=== PATIENT | male | born 1995 | race Caucasian/White ===

== ENCOUNTER 2017-05-08 14:15 | Emergency (ER) | payer MEDICAID, OTHER ==
[2017-05-08 14:31] VITALS: PULSE 72; TEMP 97.9; O2SAT 97
--- NOTE | 2017-05-08 15:58 | EDPHY ---
H & P Stated Complaint: r leg lac Time Seen by Provider: 05/08/17 14:42 HPI/ROS: Chief complaint: Right leg laceration History of present illness: This is a 22-year-old male who presents to the emergency department for right leg laceration. Patient was skateboarding when he struck his leg against a rail. He sustained a cut at that time. Mild bleeding controlled with a dressing. Minimal pain. He is still moving the right lower extremity without difficulty. He is able to ambulate well. No report of abnormal coolness or paresthesias in the leg. No other trauma reported. Immunizations are up-to-date. - Personal History Current Tetanus Diphtheria and Acellular Pertussis (TDAP): Unsure - Medical/Surgical History Other PMH: r arm surgery - Social History Smoking Status: Current every day smoker - Physical Exam Exam: General: Alert, nontoxic Skin: 5 cm vertically oriented laceration to the right mid [place] region. No foreign bodies appreciated on inspection. Musculoskeletal: Mild tenderness around the wound, no crepitus or bony deformity. The rest of the right lower extremity is nontender. He is moving all joints in all kumar without difficulty. Ambulating without difficulty. Vascular: DP and PT pulses 2+. Neurologic: Sensation appears intact throughout the right lower extremity. Constitutional: Initial Vital Signs Temperature (C) 36.6 C 05/08/17 14:28 Heart Rate 72 05/08/17 14:28 Respiratory Rate 16 05/08/17 14:28 Blood Pressure 121/76 H 05/08/17 14:28 O2 Sat (%) 97 05/08/17 14:28 O2 Delivery Mode Room Air Allergies/Adverse Reactions: Penicillins Allergy (Verified 05/08/17 14:27) Home Medications: Medication Instructions Recorded NK [No Known Home Meds] 05/08/17 Medical Decision Making - Diagnostics Imaging Results: Imaging Impressions Tibia/Fibula X-Ray 05/08/17 14:45 Impression: 1. Negative for new fracture. 2. 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 Imaging: I viewed and interpreted images myself Procedures: Procedure: Laceration repair. Verbal consent was obtained from the patient. The 5 cm laceration on the right leg was anesthetized in the usual fashion. The wound was irrigated, draped and explored to its base with a gloved finger. There were no deep structures involved. No tendon injury was identified. The wound was repaired with 4 0 Ethilon, 7 simple interrupted sutures. The wound repair was simple. The procedure was performed by myself. ED Course/Re-evaluation: Patient seen under the supervision of my secondary supervising physician Dr. Tex Funez. Patient presents to the emergency department for right lower leg injury. X-rays are negative for fracture, benign lesion noted in the tibia. I have discussed this with patient and family and patient can follow up with his primary care doctor to discuss this further. The wound has been copiously irrigated and repaired and dressed. They are discharged home. Home care is discussed. They are again to follow up with primary care doctor for recheck. Return precautions are given. They have all voiced understanding and agreement with plan. Differential Diagnosis: Included but not limited to laceration, open fracture, foreign body contamination Departure - Departure Disposition: Home, Routine, Self-Care Clinical Impression: Leg laceration Qualifiers: Encounter type: initial encounter Laterality: right Qualified Code(s): S81.811A - Laceration without foreign body, right lower leg, initial encounter Condition: Good Instructions: Care For Your Stitches (ED), Laceration (ED), Acute Wounds (ED) Additional Instructions: Follow-up with your primary care doctor for recheck Under primary care doctor know there is a benign lesion in your leg that they can follow up on if they feel it is appropriate Stitches to be removed in 14 days If symptoms worsen or new symptoms develop return to the emergency room for recheck Referrals: [facility],. [Clinic] - As per Instructions Stand Alone Forms: Work Excuse
[2017-05-08 16:24] VITALS: BP 122/76; RESP 14
== END 2017-05-08 16:23 | disposition home or self-care (01) ==
PROC: 0HQKXZZ Repair Right Lower Leg Skin, External Approach (ICD-10-PCS; principal; 2017-05-08)
DX: S81.811A Laceration without foreign body, right lower leg, initial encounter (principal); F17.200 Nicotine dependence, unspecified, uncomplicated; V00.132A Skateboarder colliding with stationary object, initial encounter; Y99.8 Other external cause status; Y93.51 Activity, roller skating (inline) and skateboarding